=== PATIENT | female | born 1980 | race Caucasian/White ===

== ENCOUNTER → 2016-11-13 | Outpatient (REF) ==
--- NOTE | 2016-11-13 09:20 | REP ---
Lumbar spine series: Three views. History: Degenerative disc disease. Findings: Lumbar vertebral body heights are preserved. There is discogenic spurring at L5-S1 and to a lesser extent at L4-5 and L3-4. There is disc spurring at L1-2 and at T11-12. Alignment is normal. Pedicles and posterior elements are intact. There is osteoarthritic facet hypertrophy bilaterally at L5-S1 and at L4-5. There is no evidence of spondylolysis or spondylolisthesis. Impression: Mild degenerative spondylosis changes. Signed by Prosper Severino MD 11/13/2016 12:00 P
== END ==
LOC: M SMT 08:51
PROVIDERS: ATTEND Internal Medicine
DX: Z02.1 Encounter for pre-employment examination (principal)